=== PATIENT | male | born 1990 | race Hispanic/Latino ===

== ENCOUNTER 2017-06-10 21:29 | Emergency (ER) | payer SELFPAY ==
[~2017-06-10] VITALS: Ht 167.6 cm; Wt 111.1 kg
[2017-06-10] MEDS ORDERED: IBUPROFEN 600 MG TAB PO STA (22:04)
[2017-06-10] MEDS ORDERED: IBUPROFEN 400 MG TAB ONE (22:11)
--- NOTE | 2017-06-10 22:43 | Diagnostic Imaging Report ---
EXAM: CHEST 2 VIEWS, PA and lateral DATE: 06/10/2017 10:04 PM Time stamp on exam: 2204 hours INDICATION: Chest pain, fever, cough COMPARISON: None FINDINGS: LINES/TUBES: None LUNGS: No consolidations or edema. PLEURA: No effusions or pneumothorax. HEART AND MEDIASTINUM: Normal size and contour. BONES AND SOFT TISSUES: No acute findings. IMPRESSION: No consolidative pneumonia. Signed by: Dr. Lulu Hannon M.D. on 06/10/2017 10:39 PM
[2017-06-10 22:57] LABS: INFLUENZAE A&B ANTIGEN (RAPID) POSITIVE FLU A (NEGATIVE)
[2017-06-10 23:03] LABS: STREPTOCOCCUS GRP A ANTIGEN NEGATIVE (NEGATIVE)
== END 2017-06-10 23:18 | disposition home or self-care (01) ==
LOC: ER 21:29
DX: R50.9 Fever, unspecified (principal); R05 Cough; J09.X2 Influenza due to identified novel influenza A virus with other respiratory manifestations
CPT/HCPCS: 71020; 83518; 87070; 87400; 99283